=== PATIENT | female | born 1975 | race Caucasian/White ===

== ENCOUNTER 2018-10-19 14:06 | Emergency (ER) | payer MEDICAID ==
[~2018-10-19] VITALS: Ht 167.6 cm; Wt 62.5 kg
[~2018-10-19 14:06] MED LIST: CLON-285 PO
[2018-10-19 14:55] LABS: BASOPHILS # (AUTO) 0.1 X10'3 (0-0.2); BASOPHILS % (AUTO) 1.1 % (0-1); EOSINOPHILS # (AUTO) 0.1 X10'3 (0-0.9); EOSINOPHILS % (AUTO) 1.8 % (0-6); HEMATOCRIT 30.6 % (35.0-45.0); HEMOGLOBIN 9.8 g/dl (12.0-16.0); LYMPHOCYTES # (AUTO) 1.6 X10'3 (1.1-4.8); MEAN CORPUSCULAR HEMOGLOBIN 23.7 PG (27.0-31.0); MEAN CORPUSCULAR VOLUME 74.2 FL (78-98); MEAN PLATELET VOLUME 8.2 FL (7.4-10.4); MONOCYTES # (AUTO) 0.9 X10'3 (0-0.9); MONOCYTES % (AUTO) 12.1 % (2-12); NEUTROPHILS # (AUTO) 4.6 X10'3 (1.8-7.7); PLATELET COUNT 448 X10'3 (140-440); RED BLOOD COUNT 4.12 X10'6 (4.20-5.60); RED CELL DISTRIBUTION WIDTH 17.5 % (11.5-14.5); WHITE BLOOD COUNT 7.3 X10'3 (4.5-11.0)
[2018-10-19 15:06] LABS: CLARITY,URINE CLOUDY (Clear); COLOR,URINE YELLOW (Yellow); GLUCOSE, URINE NEGATIVE (Neg); KETONES,URINE TRACE mg/dl (Neg); LEUKOCYTE ESTERASE ,URINE TRACE (Neg); NITRITES, URINE POSITIVE (Neg); OCCULT BLOOD,URINE NEGATIVE (Neg); PH,URINE 6.5 (4.8-8.0); PROTEIN,URINE NEGATIVE (Neg)
[2018-10-19 15:07] LABS: URINE HCG NEGATIVE (NEG)
[2018-10-19 15:08] LABS: UA COLLECTION TYPE CLN CATCH MIDSTREAM
[2018-10-19 15:12] LABS: ALANINE AMINOTRANSFERASE 29 U/L (12-78); ALBUMIN 3.1 G/DL (3.4-5.0); ALBUMIN/GLOBULIN RATIO 0.7 (1.1-1.5); ALKALINE PHOSPHATASE 132 IU/L (46-116); ANION GAP 11 (8-16); ASPARTATE AMINO TRANSFERASE 18 U/L (10-37); BILIRUBIN,TOTAL 0.4 MG/DL (0.1-1.0); BLOOD UREA NITROGEN 11 MG/DL (7-18); BUN/CREATININE RATIO 13.4 (6.6-38.0); CALCIUM 8.6 MG/DL (8.5-10.1); CHLORIDE 99 MMOL/L (99-107); CREATININE 0.82 MG/DL (0.40-0.90); GLUCOSE 100 MG/DL (70-104); LIPASE 58 U/L (73-393); POTASSIUM 3.8 MMOL/L (3.5-5.1); SODIUM 136 MMOL/L (135-145); TOTAL CARBON DIOXIDE 25.7 MMOL/L (24-32); TOTAL PROTEIN 7.7 G/DL (6.4-8.2); eGFR 76 ML/MIN
[2018-10-19 15:16] LABS: BACTERIA,URINE 4+ /HPF (Neg); RBC,URINE 0-2 /HPF (0-2); SQUAMOUS EPITHELIAL CELL,UR MODERATE /LPF (FEW); WBC CLUMPS,URINE FEW /HPF (NEGATIVE)
[2018-10-19 15:16] LABS: INR 1.1 INR; PROTHROMBIN TIME 10.9 SECONDS (9.0-12.0)
[2018-10-19 15:42] VITALS: BP 116/87
[2018-10-19] MEDS ORDERED: ketorolac tromethamine 15mg/ml inj. IM ONE (15:45)
[2018-10-19] MEDS ORDERED: CEPH-572 PO (16:28)
== END 2018-10-19 16:38 | disposition home or self-care (01) ==
LOC: ER 14:07
DX: N10 Acute pyelonephritis (principal); Z98.51 Tubal ligation status; Z88.8 Allergy status to other drugs, medicaments and biological substances; Z79.899 Other long term (current) drug therapy
CPT/HCPCS: 36415; 74176; 80053; 81001; 81025; 83690; 85025; 85610; 87077; 87088; 87186; 96372; 99284; J1885

== ENCOUNTER 2019-11-18 12:56 | Emergency (ER) | payer MEDICAID ==
[~2019-11-18] VITALS: Ht 167.6 cm; Wt 65.1 kg
[~2019-11-18 12:56] MED LIST changes: -CLON-285 PO; +CLON-565 PO
[2019-11-18 15:29] LABS: BASOPHILS # (AUTO) 0.1 X10'3 (0-0.2); EOSINOPHILS # (AUTO) 0.4 X10'3 (0-0.9); EOSINOPHILS % (AUTO) 5.5 % (0-6); HEMATOCRIT 24.2 % (35.0-45.0); HEMOGLOBIN 7.7 g/dl (12.0-16.0); LYMPHOCYTES % (AUTO) 30.4 % (21-51); MEAN CORPUSCULAR HEMOGLOBIN 23.8 PG (27.0-31.0); MEAN CORPUSCULAR VOLUME 74.4 FL (78-98); MEAN PLATELET VOLUME 6.7 FL (7.4-10.4); MONOCYTES # (AUTO) 0.7 X10'3 (0-0.9); MONOCYTES % (AUTO) 10.1 % (2-12); NEUTROPHILS # (AUTO) 3.5 X10'3 (1.8-7.7); PLATELET COUNT 640 X10'3 (140-440); RED BLOOD COUNT 3.25 X10'6 (4.20-5.60); RED CELL DISTRIBUTION WIDTH 15.6 % (11.5-14.5); WHITE BLOOD COUNT 6.7 X10'3 (4.5-11.0)
[2019-11-18 15:44] LABS: ALANINE AMINOTRANSFERASE 19 U/L (12-78); ALBUMIN 3.3 G/DL (3.4-5.0); ALBUMIN/GLOBULIN RATIO 0.8 (1.1-1.5); ALKALINE PHOSPHATASE 59 IU/L (46-116); ANION GAP 8 (8-16); ASPARTATE AMINO TRANSFERASE 16 U/L (10-37); BILIRUBIN,TOTAL 0.1 MG/DL (0.1-1.0); BLOOD UREA NITROGEN 13 MG/DL (7-18); BUN/CREATININE RATIO 17.6 (6.6-38.0); CALCIUM 8.1 MG/DL (8.5-10.1); CHLORIDE 106 MMOL/L (99-107); CREATININE 0.74 MG/DL (0.40-0.90); GLUCOSE 80 MG/DL (70-104); POTASSIUM 4.2 MMOL/L (3.5-5.1); SODIUM 141 MMOL/L (135-145); TOTAL CARBON DIOXIDE 26.8 MMOL/L (24-32); TOTAL PROTEIN 7.3 G/DL (6.4-8.2); eGFR 85 ML/MIN
[2019-11-18 17:08] LABS: CLARITY,URINE SLIGHTLY CLOUDY (Clear); COLOR,URINE YELLOW (Yellow); GLUCOSE, URINE NEGATIVE (Neg); KETONES,URINE NEGATIVE (Neg); LEUKOCYTE ESTERASE ,URINE NEGATIVE (Neg); NITRITES, URINE POSITIVE (Neg); OCCULT BLOOD,URINE NEGATIVE (Neg); PROTEIN,URINE NEGATIVE (Neg); UROBILINOGEN,URINE 0.2 E.U/dL (0.2-1.0)
[2019-11-18 17:13] LABS: UA COLLECTION TYPE NON-SPECIFIED
[2019-11-18 17:14] LABS: RBC,URINE NONE SEEN /HPF (0-2)
[2019-11-18 17:15] LABS: BACTERIA,URINE 4+ /HPF (Neg); MUCUS STRANDS NONE SEEN /LPF (Neg); SQUAMOUS EPITHELIAL CELL,UR FEW /LPF (FEW); URINE HCG NEGATIVE (NEG); WBC CLUMPS,URINE FEW /HPF (NEGATIVE)
[2019-11-18] MEDS ORDERED: CEPH-572 PO (17:36)
[2019-11-18 17:49] VITALS: BP 118/68
== END 2019-11-18 17:50 | disposition home or self-care (01) ==
LOC: ER 12:56
DX: D64.9 Anemia, unspecified (principal); N39.0 Urinary tract infection, site not specified; F15.90 Other stimulant use, unspecified, uncomplicated; Z88.8 Allergy status to other drugs, medicaments and biological substances; Z79.2 Long term (current) use of antibiotics; Z79.899 Other long term (current) drug therapy
CPT/HCPCS: 80053; 81001; 81025; 85025; 87077; 87088; 87186; 99283

== ENCOUNTER 2024-03-10 13:17 | Emergency (ER) | payer MEDICAID ==
[~2024-03-10] VITALS: Ht 166.4 cm; Wt 65.7 kg
[~2024-03-10 13:17] MED LIST changes: +CLOT15CR73 TP
[2024-03-10 13:26] VITALS: BP 117/73; PULSE 81; RESP 18; TEMP 98.4; O2SAT 95
== END 2024-03-10 16:49 | disposition left against medical advice (07) ==
LOC: ER 13:18
DX: R11.2 Nausea with vomiting, unspecified (principal); R50.9 Fever, unspecified; R53.83 Other fatigue; Z53.21 Procedure and treatment not carried out due to patient leaving prior to being seen by health care provider